=== PATIENT | male | born 1945 | race African-American/Black ===

== ENCOUNTER 2018-02-07 05:40 | Inpatient (IN) | payer OTHER ==
[2018-02-07] MEDS ORDERED: PROPOFOL 20 ML (10:00)
[2018-02-07] MEDS ORDERED: LIDOCAINE 2% (SDV) 5 ML INJ (10:00)
[2018-02-07] MEDS ORDERED: MEPERIDINE 100 MG INJ (10:00)
[2018-02-07] MEDS ORDERED: CEFAZOLIN 1 GM INJ (11:06)
[2018-02-07] MEDS ORDERED: NALOXONE (0.4 MG/ML) INJ (11:15)
[2018-02-07] MEDS ORDERED: MIDAZOLAM 1 MG/ML 2 ML INJ IV (11:30)
[2018-02-07] MEDS ORDERED: HYDROmorphONE (0.2 MG/ML) 10ML SYG IV ×3 (11:30)
[2018-02-07] MEDS ORDERED: OXYCODONE/ACETAMINOPHEN (5/325) TAB PO ×2 (11:30)
[2018-02-07] MEDS ORDERED: DIPHENHYDRAMINE 50 MG INJ IV (11:30)
[2018-02-07] MEDS ORDERED: METOCLOPRAMIDE 10 MG INJ IV (11:30)
[2018-02-07] MEDS ORDERED: MEPERIDINE 25 MG INJ IV (11:30)
[2018-02-07] MEDS ORDERED: ONDANSETRON 4 MG INJ IV (11:30)
[2018-02-07] MEDS ORDERED: EPHEDrine SULFATE 50 MG/5 ML SYG IV (11:30)
[2018-02-07] MEDS ORDERED: FENTAnyl 50 MCG/ML VIAL IV ×3 (11:30)
[2018-02-07] MEDS ORDERED: LABETALOL HCL 20MG INJ IV (11:30)
[2018-02-07] MEDS ORDERED: hydrALAzine 20 MG INJ IV (11:30)
[2018-02-07] MEDS: BUPIVACAINE 0.5% (SDV) 30 ML INJ (11:33)
[2018-02-07] MEDS: CEFAZOLIN 2 GM/50 ML (PMX) 50 ML IVPB (13:30)
[2018-02-07] MEDS: SOD CHLORIDE 0.9% 1,000 ML IV (13:30)
[2018-02-07] MEDS: LACTATED RINGER'S 1,000 ML IV (13:30)
[2018-02-07] MEDS: traMADol 50 MG TAB PO (17:45)
[2018-02-07] MEDS: IBUPROFEN 800 MG TAB GTB (21:33)
[2018-02-08] MEDS: IBUPROFEN 800 MG TAB GTB (09:44)
== END 2018-02-08 09:55 | DRG 489 ==
LOC: SDS 05:40 → REC 16:32 → MS1 18:00
PROC: 0SBD4ZZ Excision of Left Knee Joint, Percutaneous Endoscopic Approach (ICD-10-PCS; principal; 2018-02-07 09:30)
PROC: 0SCD4ZZ Extirpation of Matter from Left Knee Joint, Percutaneous Endoscopic Approach (ICD-10-PCS; 2018-02-07 09:30)
DX: M23.252 Derangement of posterior horn of lateral meniscus due to old tear or injury, left knee (principal); I10 Essential (primary) hypertension; M23.42 Loose body in knee, left knee; E55.9 Vitamin D deficiency, unspecified; Z59.0 Homelessness
CPT/HCPCS: 88304